=== PATIENT | female | born 1965 | race Caucasian/White ===

== ENCOUNTER 2021-06-09 14:36 | Emergency (ER) | payer BC ==
[~2021-06-09] VITALS: Ht 154.9 cm; Wt 55.3 kg
[2021-06-09] MEDS ORDERED: LEVO750T46 PO (15:29)
[2021-06-09] MEDS ORDERED: BENZ-13 PO (15:29)
--- NOTE | 2021-06-09 15:42 | NUR ---
Patient discharged to home in stable condition. Written and verbal after care instructions given. Patient verbalizes understanding of instructions. Stressed follow up or return to ER for worsening s/s.
== END 2021-06-09 15:43 | disposition home or self-care (01) ==
LOC: ER 14:36
DX: R05.9 Cough, unspecified (principal); J32.9 Chronic sinusitis, unspecified; Z88.1 Allergy status to other antibiotic agents
CPT/HCPCS: A4663